=== PATIENT | female | born 1975 | race Caucasian/White ===

== ENCOUNTER 2018-02-04 11:10 | Emergency (ER) | payer BC ==
--- OUTSIDE RECORDS SUMMARY | 2018-02-04 11:54 | XMS REPORT | Continuity of Care Document ---
:1975 External Reference #:[id number] Author Name Nupur Blandon O.D. Address [address] [place] [address] Care Team Providers Name Role Phone Shanae Carlisle M.D. Primary Care Physician Unavailable Payers Type Date Identification Numbers Payment Provider Subscriber Policy Number: [id number] [facility] Opal Mullins PayID: [id number] [address] [place] [id number] Advance Directives Description No Information Available Problems Date Description Provider Status Onset: 07/07/2015 Myopia Nupur Blandon O.D. Active Onset: 07/07/2015 Presbyopia Nupur Blandon O.D. Active Family History Date Family Member(s) Problem(s) Comments Father No Current Problems Mother Cataract Grandmother Cataract Social History Type Date Description Comments Sex Unknown Marital Status Legal Status: Occupation [employer] Work Status Full-Time Employment ETOH Use Beer or Wine ~ 3 times weekly Tobacco Use Start: Unknown Patient has never smoked Recreational Drug Use Denies Drug Use Smoking Status Reviewed: 01/09/18 Patient has never smoked Allergies, Adverse Reactions, Alerts Date Description Reaction Status Severity Comments 07/07/2015 Amoxicillin Active 07/03/2015 NKDA Inactive Medications Medication Date Status Form Strength Qnty SIG Indications Ordering Provider Artificial Active Solution 0.1-0.3% as needed Nupur Hyde Tears 018 Kaylee Blandon Ibuprofen 0000/0 Active Tablets 800mg Unknown 000 Mirena 0 Active IUD 20mcg/24HR Unknown 000 Immunizations Description No Information Available Vital Signs Description No Information Available Results Description No Information Available Procedures Date Code Description Status 07/07/2015 04426 Est Patient Comprehensive Exam Completed 06/25/2013 65300 Determination Of Refractive State Completed 06/25/2013 96195 New Patient Comprehensive Exam Completed 09/28/2009 94351 Est Patient Comprehensive Exam Completed 08/08/2003 114 Polycarb SV Completed 08/08/2003 101 Level 1 SCL Fit/Refit Completed 08/03/2003 53412 Determination Of Refractive State Completed 08/03/2003 84265 New Patient Comprehensive Exam Completed Encounters Description No Information Available Plan of Treatment 01/09/2018 - Nupur Blandon O.D.H52.4 PresbyopiaComments:Smoking can increase the risk of developing or worsening any eye related disease, as well as affect your overall health. If you are a smoker, we strongly recommend that you quit.If you are not a smoker, we strongly recommend that you do not start. You have presbyopia. This is when the lens in your eye loses the ability to change focus, and happens as we age. A pair of reading glasses will help you see up close. You can also try+0.75 OR +1.00 READING GLASSESFollow up:2 Year Follow Up You can expect to have your eyes dilated at your next visit. If Dr. Blandon orders any additional testing, it may require extra time. We recommend that you bring sunglasses, as dilation drops often make you light sensitive until they wear off. We always recommend you bring someone to drive you home if you are uncomfortable driving with your eyes dilated. If you have any questions before your next visit, feel free to call our office at .
[2018-02-04] MEDS ORDERED: Ondansetron INJ* 2 MG/ML VIAL IV ONE (13:06)
[2018-02-04] MEDS ORDERED: Ketorolac INJ* 30 MG/ML 1 ML VIAL IM ONE (13:06)
--- NOTE | 2018-02-04 13:10 | ED ---
Abdominal Pain/Female - HPI Summary HPI Summary: A 42 y/o F presents to ED with c/o severe, intermittent upper to middle abd pain onset two to three days ago. Pain rated 11 out of 10 last night, but is a 6 out of 10 at bedside. Associated sx: chills, subjective fever, decreased oral intake, vomit 1x last night, watery pale diarrhea, bilat LE tingling, diffuse myalgia. She states not having this type of abd pain previously. No one else in the home is sick, use well-water at home. Denies recent ABX. Denies blood in stool. She took liquid IBP to no relief. [facility]: Began 01/31/18, only one day, which she states is not unusual. IUD placed a few years ago. PCP is Dr. Carlisle. She takes fish oil daily, denies other daily medications. Vital signs while in room: HR 74 bpm, BP 121/77. Home Medications Medication Instructions Recorded Confirmed Type Ibuprofen TAB* [Motrin TAB* 800 MG] 800 mg PO Q6H 12/14/15 12/14/15 History - History of Current Complaint Chief Complaint: EDAbdPain Stated Complaint: FEVER/CHILLS/ABD PAIN/COUGH Time Seen by Provider: 02/04/18 13:02 Hx Obtained From: Patient, Family/Government Documents Librarian - , Khanh Castellon Last Menstrual Period: 12/03/15 Onset/Duration: Gradual Onset, Lasting Days, Still Present Timing: Intermittent Episode Lasting Severity Initially: Severe Severity Currently: Moderate Pain Intensity: 6 Pain Scale Used: 0-10 Numeric Location: Diffuse - upper and middle Character: Cramping Aggravating Factor(s): Nothing Alleviating Factor(s): Nothing Associated Signs and Symptoms: Positive: Fever, Decreased Appetite - and oral intake, Vomiting, Diarrhea, Other: - pos: chills, bilat LE tingling, diffuse myalgia. Negative: Blood in Stool Allergies/Adverse Reactions: Allergies Allergy/AdvReac Type Severity Reaction Status Date / Time amoxicillin Allergy Headache Verified 02/04/18 11:33 PMH/Surg Hx/FS Hx/Imm Hx Previously Healthy: Yes Endocrine/Hematology History: Denies: Hx Diabetes, Hx Thyroid Disease Respiratory History: Denies: Hx Asthma, Hx Chronic Obstructive Pulmonary Disease (COPD), Hx Lung Cancer, Hx Pneumonia, Hx Pulmonary Embolism GI History: Denies: Hx Gall Bladder Disease, Hx Gastrointestinal Bleed, Hx Ulcer, Hx Urosepsis History: Denies: Hx Kidney Stones, Hx Renal Disease Sensory History: Denies: Hx Hearing Aid Neurological History: Denies: Hx Dementia, Hx Migraine, Hx Seizures, Hx Transient Ischemic Attacks (TIA) Psychiatric History: Denies: Hx Anxiety, Hx Depression, Hx Panic Disorder, Hx Schizophrenia, Hx Bipolar Disorder - Surgical History Surgery Procedure, Year, and Place: 03/10 RT ANKLE SURGERY, ganglion cyst left wrist; lasik, IUD PLACEMENT Infectious Disease History: No Infectious Disease History: Denies: History Other Infectious Disease, Traveled Outside the [place] in Last 30 Days - Family History Known Family History: Positive: Cardiac Disease, Hypertension, Diabetes Family History: Mother passed, COPD/DM. Father passed: UT/HTN. - Social History Occupation: Employed Full-time Lives: With Family Alcohol Use: Weekly Hx Substance Use: No Substance Use Type: Reports: None Hx Tobacco Use: No Smoking Status (MU): Never Smoked Tobacco Review of Systems Positive: Fever, Chills, Other - decreased oral intake Positive: Abdominal Pain, Vomiting, Diarrhea Positive: other - neg: blood in stool Positive: Myalgia - diffuse Neurological: Other - pos: bilat LE tingling All Other Systems Reviewed And Are Negative: Yes Physical Exam - Summary Physical Exam Summary: Appearance: Well-appearing, moderate pain distress, well-nourished Skin: Warm, color reflects adequate perfusion, dry Head: Normal Head/Face inspection, atraumatic Eyes: Conjunctiva clear ENT: Normal inspection Neck: Supple, no nodes, no JVD Respiratory: Lungs clear, normal breath sounds, no respiratory distress Cardio: RRR, No murmur, pulses normal, brisk capillary refill Abdomen: Soft, diffuse lower abd tenderness that is worse on L, no guarding, no rebound, no masses, non-distended Bowel sounds: Present Musculoskeletal: Strength Intact/ROM intact, no calf tenderness, no edema. Psychological: Normal Neuro: Alert, muscle tone normal, no focal deficit Triage Information Reviewed: Yes Vital Signs On Initial Exam: Initial Vitals Temp Pulse Resp BP Pulse Ox 97.7 F 74 14 121/77 100 02/04/18 11:28 02/04/18 11:28 02/04/18 11:28 02/04/18 11:28 02/04/18 11:28 Vital Signs Reviewed: Yes Diagnostics - Vital Signs Vital Signs Temp Pulse Resp BP Pulse Ox 02/04/18 11:28 97.7 F 74 14 121/77 100 - Laboratory Result Diagrams: 02/04/18 13:23 02/04/18 13:23 Lab Statement: Any lab studies that have been ordered have been reviewed, and results considered in the medical decision making process. - Radiology CXR Radiology Interpretation Completed By: Radiologist Summary of Radiographic Findings: IMPRESSION: No evidence for acute dz. ED provider has reviewed this report. Re-Evaluation - Re-Evaluation 1 Re-Evaluation Time: 14:40 Change: Improved 2 Re-Evaluation Time: 16:06 Change: Improved Comment: Pain is controlled, no more diarrhea, pt understands discharge instructions. present in room. Abdominal Pain Fem Course/Dx - Course Course Of Treatment: Pt is a 42 y/o F presenting with severe, intermittent upper to middle abd pain onset two to three days ago. Associated sx: chills, subjective fever, decreased oral intake, vomit 1x last night, watery pale diarrhea, bilat LE tingling, diffuse myalgia. She states not having this type of abd pain previously. No one else in the home is sick, use well-water at home. Denies recent ABX. Denies blood in stool. CXR is unremarkable. UA found 1 + protein, 1+ ketones, 1+ blood, 1+ RBCs, squamous epithelia cells present. At 1415, [place], micro, confirms cryptosporidium. Lab work shows depressed potassium and magnesium, INR: 1.11, CRP: 78. Replenished potassium, magnesium in ED. Consulted with Dr. Carlisle, PCP who recommends Immodium and disposition based on [facility]To[facility], to f/u in-office if symptoms persist. Allergies noted, UA reviewed. Pt medications reviewed this visit. - Diagnoses Provider Diagnoses: Abdominal pain, Hypokalemia, Hypomagnesemia, Diarrhea due to cryptosporidium - Provider Notifications Discussed Care Of Patient With: Shanae Carlisle - PCP Time Discussed With Above Provider: 14:30 Instructed by Provider To: Other - Appears to be self-limited cryptosporidium. Recommends cancelling CT, manage sx with Loperamide, consulted [facility] for disposition, recommends testing home well. Discharge - Sign-Out/Discharge Documenting (check all that apply): Patient Departure - DC - Discharge Plan Condition: Stable Disposition: HOME Patient Education Materials: Acute Diarrhea (ED) Referrals: Shanae Carlisle MD [Primary Care Provider] - Additional Instructions: You have Cryptosporidium. Follow up with Dr. Carlisle on 02/09/18, if your symptoms persist. Use Immodium as needed for the diarrhea as long as you do not have a fever ( temp above 101.5 F) You were given potassium and magnesium orally in the Emergency Department (ED). Follow your weight daily. Avoid fruits except banana. Avoid milk except yogurt. Hydrate. Try to find a drink with potassium in it. You may want to check your well water. RETURN TO THE EMERGENCY DEPARTMENT FOR CHANGING OR WORSENING SYMPTOMS. - Attestation Statements Document Initiated by Scribe: Yes Documenting Scribe: Kleber Miller Provider For Whom Scribe is Documenting (Include Credential): Dr. Ariella Hernández MD Scribe Attestation: Kleber Evangelista, scribed for Dr. Ariella Hernández MD on 02/04/18 at 1608.
[2018-02-04 13:30] LABS: ABS Basophils 0 10^3/ul (0-0.2); ABS Eosinophils 0 10^3/ul (0-0.6); ABS Monocytes 0.7 10^3/ul (0-0.8); ABS Neutrophils 4.1 10^3/ul (1.5-7.7); ABS Nucleated RBC 0 10^3/ul; Eosinophil % 0.5 % (0-6); Hematocrit 43 % (35-47); Hemoglobin 14.8 g/dl (12.0-16.0); Lymphocyte % 16.3 % (25-47); Mean Corpuscular HGB Conc 35 g/dl (31-36); Mean Corpuscular Hemoglobin 32 pg (27-31); Mean Corpuscular Volume 91 fL (80-97); Mean Platelet Volume 7.7 fL (7.4-10.4); Nucleated Red Blood Cells % 0.2; Platelet Count 164 10^3/ul (150-450); Red Blood Count 4.67 10^6/ul (4.00-5.40); Red Cell Distribution Width 13 % (10.5-15); White Blood Count 5.9 10^3/ul (3.5-10.8)
[2018-02-04 13:37] LABS: INR 1.11 (0.77-1.02)
[2018-02-04 13:56] LABS: EGFR Non-African American 79.4 (>60)
[2018-02-04] MEDS ORDERED: Potassium Chlor TAB* 20 MEQ TAB.ER PO ONE (14:03)
[2018-02-04] MEDS ORDERED: Magnesium Sulfate IV* 0.5 GM/ML 2 ML VIAL (1 GM) IVPB ONE (14:04)
[2018-02-04 14:28] LABS: Urine Appearance Cloudy; Urine Blood 1+ (Negative); Urine Color Amber; Urine Ketones 1+ (Negative); Urine Protein 1+(30 mg/dL) (Negative); Urine Red Blood Cell 1+(3-5/hpf) (Absent); Urine Specific Gravity 1.026 (1.010-1.030); Urine Urobilinogen Negative (Negative); Urine White Blood Cell Trace(0-5/hpf) (Absent)
[2018-02-04] MEDS ORDERED: Iohexol 300* (CONTRAST) 10 ML SDV IV ONE (14:28)
[2018-02-04] MEDS ORDERED: Magnesium Oxide TAB* 400 MG PO ONE (14:41)
[2018-02-04] MEDS ORDERED: NS 0.9% 1000 ML* 1,000 ML BOLUS ONE (14:45)
[2018-02-04 16:28] VITALS: BP 121/58
== END 2018-02-04 16:26 | disposition home or self-care (01) ==
LOC: ED 11:10
DX: R10.32 Left lower quadrant pain (principal); E87.6 Hypokalemia; E83.42 Hypomagnesemia; A07.2 Cryptosporidiosis; Z88.0 Allergy status to penicillin
CPT/HCPCS: 36415; 71045; 80053; 81003; 81015; 82150; 82272; 82550; 83605; 83630; 83690; 83735; 84484; 84702; 85025; 85610; 86140; 87086; 87328; 87329; 87493; 96372; 96374; 99281; A9270-GY; J1885; J2405